=== PATIENT | male | born 2000 | race Hispanic/Latino ===

== ENCOUNTER 2023-10-04 12:53 | Emergency (ER) | payer OTHER ==
[~2023-10-04] VITALS: Ht 170.2 cm; Wt 72.6 kg
[2023-10-04 13:15] VITALS: BP 121/72; PULSE 84; RESP 18; O2SAT 100
[2023-10-04] MEDS: TETANUS/DIPHTHERIA TOXOID [ADULT] 0.5 ML VIAL IM ONE (14:41)
[2023-10-04 14:48] LABS: APPEARANCE,URINE CLEAR (CLEAR); BILIRUBIN,URINE NEGATIVE (NEGATIVE); COLOR,URINE LIGHT-YELLOW (YELLOW); GLUCOSE, URINE (UA) NEGATIVE (NEGATIVE); KETONES,URINE NEGATIVE (NEGATIVE); LEUKOCYTE ESTERASE ,URINE NEGATIVE Leu/uL (NEGATIVE); NITRATE,URINE NEGATIVE (NEGATIVE); OCCULT BLOOD,URINE NEGATIVE (NEGATIVE); PH,URINE 5.5 (5.0-8.0); PROTEIN,URINE NEGATIVE (NEGATIVE); UROBILINOGEN,URINE 0.2 mg/dL (0.2-1.0)
[2023-10-04 14:49] LABS: ADD UA MICROSCOPIC NO
[2023-10-04] MEDS ORDERED: NEOMY SULF/BACITRAC ZN/POLY OINT 30GM TUBE TP SCH (15:30)
[2023-10-04] MEDS: KETOROLAC 60 MG VIAL (30MG/ML) IM ONE (15:52)
[2023-10-04] MEDS: NEOMY SULF/BACITRAC ZN/POLY OINT 30GM TUBE TP ONE (15:53)
[2023-10-04] MEDS: CEFAZOLIN SODIUM 500 MG VIAL IM SCH (16:25)
[2023-10-04] MEDS ORDERED: IBUP-2070 PO (16:29)
[2023-10-04] MEDS ORDERED: CEPH500B PO (16:29)
== END 2023-10-04 17:20 | disposition home or self-care (01) ==
LOC: EDH 12:53
DX: S01.81XA Laceration without foreign body of other part of head, initial encounter (principal); S40.812A Abrasion of left upper arm, initial encounter; S40.811A Abrasion of right upper arm, initial encounter; S30.810A Abrasion of lower back and pelvis, initial encounter; S70.311A Abrasion, right thigh, initial encounter; S80.811A Abrasion, right lower leg, initial encounter; V89.2XXA Person injured in unspecified motor-vehicle accident, traffic, initial encounter; Y93.I9 Activity, other involving external motion; Y92.488 Other paved roadways as the place of occurrence of the external cause; Y99.8 Other external cause status
CPT/HCPCS: 99285; 70450; 71045; 81003; 90714; 73060; 90471; 12011; 93005; 96372; J0690